=== PATIENT | female | born 1995 | race African-American/Black ===

== ENCOUNTER 2023-10-09 21:58 | Emergency (ER) | payer OTHER, SELFPAY ==
[2023-10-09 22:02] VITALS: BP 138/81; PULSE 107; RESP 18; TEMP 37.1; O2SAT 100; BMI 37.3
--- NOTE | 2023-10-10 02:40 | ED_ITS ---
HPI - Skin/Abscess/Foreign Bdy General Chief complaint: Skin/Abscess/Foreign Body Stated complaint: cyst lower l leg Time Seen by Provider: 10/10/23 02:40 Source: patient Mode of arrival: ambulatory Limitations: no limitations History of Present Illness ED Provider: ori STEPHENS narrative: Patient's history of hydradenitis suppurativa with frequent abscess comes here for swelling of the left dumont for last 1 month with got worse last 4 days taken cephalexin and doxycycline last month but now for last 4 days swelling has more prominent with redness no fever no chills no history of insect bite Related Data Previous Rx's ?Medication ?Instructions ?Recorded amoxicillin 875 mg-potassium 1 tab PO BID #20 tabs 10/10/23 clavulanate 125 mg tablet doxycycline hyclate 100 mg tablet 100 mg PO BID #20 tabs 10/10/23 Allergies Allergy/AdvReac Type Severity Reaction Status Date / Time No Known Allergies Allergy Verified 10/09/23 22:07 Review of Systems 2 Review of Systems: Yes all other systems are reviewed and are negative [facility] Social History Social History Advance Directives: No Advance Directives Information Provided: No Do you have a plan to hurt others: No Plan Physical Exam 2 Vital Signs: Vital Signs: Last Vital Signs Temp 99.0 F 10/10/23 04:22 Pulse 106 H 10/10/23 04:22 Resp 18 10/10/23 04:22 BP 130/89 10/10/23 04:22 Pulse Ox 100 10/10/23 04:22 O2 Del Method Room Air 10/10/23 04:22 BMI result Body Mass Index 37.3 Extrem: Upper/lower leg/hip images: 1. Superficial abscess slight warmth feeling no significant tenderness of Tibia Medications Administered Discontinued Medications Generic Name Dose Route Start Last Admin Trade Name Freq PRN Reason Stop Dose Admin Cefuroxime Axetil 500 mg 10/10/23 04:19 10/10/23 04:29 Cefuroxime Axetil 500 Mg Tablet PO 10/10/23 04:20 500 mg ONCE ONE Administration Doxycycline Monohydrate 100 mg 10/10/23 04:19 10/10/23 04:29 Doxycycline Monohydrate 100 Mg Capsule PO 10/10/23 04:20 100 mg ONCE ONE Administration Lidocaine HCl 5 ml 10/10/23 04:25 10/10/23 04:27 Lidocaine Hcl 1 % Mpf 5 Ml Vial INFILTRATI 10/10/23 04:26 5 ml ONCE ONE Administration Procedures Abscess I/D Site: lower extremity (Leg) Side (if applicable): left Local Anesthetic: lidocaine 1% Amount of anesthesia used (mL): 3 Technique: incised with blade Amount of fluid expressed (mL): 2 Sent for culture/gram staining?: Yes Irrigation: No Packing used?: iodoform Discharge Plan Discharge Clinical Impression: Abscess of leg, left Patient Disposition: Home, Self-Care Instructions: Abscess Incision and Drainage (DC) Additional Instructions: Local care as advised Packing removal in 2 days Take antibiotic as prescribed Report to the ER if worsening of the swelling or pain or red or fever Prescriptions: New doxycycline hyclate 100 mg tablet 100 mg PO BID Qty: 20 0RF amoxicillin-pot clavulanate 875-125 mg tablet 1 tab PO BID Qty: 20 0RF Print Language: Danish
[2023-10-10 04:22] VITALS: BP 130/89; PULSE 106; RESP 18; TEMP 37.2; O2SAT 100
[2023-10-10] MEDS: Lidocaine HCl 1 % MPF 5 ML VIAL INFILTRATI (04:27)
[2023-10-10] MEDS: Doxycycline Monohydrate 100 MG CAPSULE PO (04:29)
[2023-10-10] MEDS: cefuroxime axetiL 500 MG TABLET PO (04:29)
[2023-10-10 04:35] VITALS: BP 130/89; PULSE 106; RESP 18; TEMP 37.2; O2SAT 100
== END 2023-10-10 04:42 | disposition home or self-care (01) ==
PROVIDERS: Emergency Provider Internal Medicine; PCP Internal Medicine
DX: L02.416 Cutaneous abscess of left lower limb (principal)
CPT/HCPCS: 10060; 87070; 87205; 99284

== ENCOUNTER 2024-08-03 10:28 | Outpatient (AMB) | payer OTHER, SELFPAY ==
--- NOTE | 2024-08-03 10:32 | A.OFFVIS_ITS ---
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 Left LE worse than right LE. Started 10 yrs ago and reoccurs every year and forms wound on the Left LE. Pt states seen by derm previously and they did bx. Online Marketer Required: No Accompanied by: Self / Same As Patient Allergies dairy Adverse Reaction (Mild, Uncoded 08/03/24 10:36) Unknown HPI HPI INSTALLATION AND SERVICE TECHNICIAN/PCP ref for LE discoloration/swelling LLE: Details: Shayna, a very pleasant 29yo female patient, is presenting today on a referral from her PCP for left > greater than right lower extremity swelling with discoloration and pain. She states this discoloration with wounds, pain, and swelling has been going on for >10y. She states she is not currently experiencing any wounds but she continues with the swelling and discomfort. Complaints include pain/discomfort, swelling of lower extremities, and wounds of the lower extremities. It has been affecting their daily activities including walking, standing, and physical activity. It is noted more so in the left leg. She has been told she is a prediabetic, but not currently on medications. She is a nonsmoker, never smoked. She has never had a BC and there is no clotting disorders in her family, that she knows. Patient denies any previous venous surgery or injections. Patient denies any history of DVT/ PE. Patient denies any history of phlebitis. Trial of compression includes - elevation with some relief They now present for vascular evaluation regarding their varicose veins. [facility] Medical History (Updated 08/03/24 @ 10:53 by Hetal Valentin PA-C) Hidradenitis suppurativa Social History Alcohol intake: current Alcohol intake frequency: holidays/special occasions only Review of Systems Const Reports as per HPI and Denies weakness ENT Reports Normal hearing present and Denies dizziness Card Reports as per HPI, Denies chest pain, Denies chest pain at rest, Denies chest pain with activity, Denies dyspnea and Denies dyspnea on exertion Resp Reports as per HPI, Denies cough, Denies dyspnea and Denies dyspnea on exertion GI Reports as per HPI, Denies abdominal pain, Denies nausea and Denies vomiting Musc Denies numbness Skin/Breast Reports as per HPI, Denies erythema and Denies wounds Neuro Reports Normal hearing present, Denies dizziness, Denies numbness, Denies Sensory deficit (Neuro) and Denies weakness Psych Reports no additional complaints Endo Reports no additional complaints Physical Exam Vital Signs: BMI result Body Mass Index 37.2 Const General: healthy appearing and no acute distress Orientation/consciousness: patient oriented x3 HEENT Head: Yes normal to inspection Ears: hearing grossly normal bilaterally Mouth: Normal oral and palatal mucosa present Resp Effort & Inspection: normal respiratory effort and able to speak in complete sentences Auscultation: clear to auscultation bilaterally Cardio Jugular venous distension: no JVD Rate: regular rate Rhythm: regular rhythm Heart sounds: S1 normal heart sound present and S2 normal heart sound present Bruits: no abdominal aortic bruits, no carotid bruits, no femoral bruits and no renal bruits Peripheral pulses: Peripheral pulses 2+ throughout GI Inspection: Yes normal to inspection Palpation (GI): No Abdominal aortic bruit present Skin General skin exam: no rashes or lesions noted Wounds: no wounds Hair: normal Neuro General: patient oriented x3 Cranial nerves: Yes Normal hearing present Cognition (Neuro): normal cognition Gait exam (Neuro): Normal gait present Motor exam (neuro): 5/5 motor strength present throughout Sensory Exam: No Sensory deficit (Neuro) Extrem Other: Left lower extremity: +2 pitting edema noted. Discoloration noted from the pretibial area circumferentially to above the ankle. The posterior aspect is [address] and painful to the touch. Not hot to the touch. No wounds noted now. Palpable DP pulse. Right lower extremity: +1 pitting edema noted. Smaller areas of discoloration in the tibial area. No wounds noted. Palpable DP pulse. CEAP: C - 4 E - primary A - superficial P - reflux General: Yes normal to inspection, Yes full ROM, Yes capillary refill normal and Yes normal gait Assessment & Plan Assessment & Plan (1) Varicose veins of both lower extremities with inflammation: Code(s): I83.11 - Varicose veins of right lower extremity with inflammation; I83.12 - Varicose veins of left lower extremity with inflammation Category: Medical Plan: Shayna is presenting today on a referral from her PCP for concerns of ongoing lower extremity swelling with discoloration and hx of wounds. In short, the patient has evidence of venous insufficiency. I have discussed the pathophysiology with the patient. In addition I have provided informational material regarding venous disease to the patient. We have discussed conservative measures including compression, elevation, and exercise. We were able to provide her with compression socks today and discussed the importance of wearing them daily. I have taken the liberty of ordering venous insufficiency testing with the patient. They will follow up with me after testing. The patient had an opportunity to ask questions regarding the treatment plan. All questions were answered. Imaging studies, laboratory studies and physical exam results were discussed and reviewed in detail. No major barriers to und erstanding were identified. The patient expressed understanding and agreement with the above treatment plan. The patient is aware they should contact our office by phone for worsening of the current condition or the appearance of new symptoms. Thank you for allowing me to participate in the vascular care of this patient. If you have any questions or concerns regarding the treatment for the above condition please do not hesitate to contact me. The office telephone contact is [phone]. This note is constructed using voice recognition software. While every effort has been made to ensure accuracy, small arms artillery repairer errors may have been included. Thank you for allowing me to participate in the care of your patient. Yours sincerely, KIERA Castillo Orders: Orders US venous duplex LE BI 1 Week I83.11 - Varicose veins of right lower extremity with inflammation, I83.12 - Varicose veins of left lower extremity with inflammation Coding Level of Care Code New Pt Level 4 (00403) Diagnoses Varicose veins of both lower extremities with inflammation I83.11; I83.12
[2024-08-03 10:33] VITALS: BMI 37.2
--- OUTSIDE RECORDS SUMMARY | 2024-08-03 12:00 | XMS_ITS | Referral Summary ---
Author Organization [facility] Address [address] [place] [address] Care Team Providers Care Glue Mixer Name Role Phone Neel Raza Primary Care Provider [phone] Allergies No known active allergies Medications No known medications Social History Tobacco Use Types Packs/Day Years Used Date Smoking Tobacco: Never Assessed Comments Unknown Sex and Gender Information Value Date Recorded Sex Assigned at Female 10/22/2023 12:08 PM EDT Legal Sex Female 12:03 PM EDT Gender Identity Female 10/22/2023 12:08 PM EDT Sexual Orientation Straight 10/23/2023 10 :16 AM EDT Plan of Treatment Not on file Insurance [employer] Care Teams Glue Mixer Relationship Specialty Start Date End Date Neel Raza [address] [place] [address] [address] [place] [address] PCP - General Internal Medicine 10/22/23
== END 2024-08-03 11:10 | disposition home or self-care (01) ==
LOC: HO.HVS 10:29
PROVIDERS: PCP Internal Medicine; Visit Provider Physician Assistant Surgical
DX: I83.11 Varicose veins of right lower extremity with inflammation (principal); I83.12 Varicose veins of left lower extremity with inflammation
CPT/HCPCS: 99204

== ENCOUNTER 2024-08-25 13:40 | Outpatient (REF) | payer OTHER, SELFPAY ==
--- NOTE | ~2024-08-25 | US_ITS ---
EXAMINATION: US LOWER EXTREMITY VENOUS (REFLUX EXAM), BILATERAL CLINICAL INFORMATION: Varices. COMPARISON: None. TECHNIQUE: Color flow triplex imaging and compression Doppler was performed to evaluate both the deep and the superficial systems bilaterally. To evaluate the superficial system, the examination was performed in the upright position. Color-flow Doppler ultrasound and compression ultrasound were utilized. In addition, maneuvers were utilized to demonstrate reflux. FINDINGS: 1. DEEP VENOUS ULTRASOUND OF THE RIGHT LOWER EXTREMITY: Common Femoral Vein: Compressible, normal respiratory variation and augmented flow. Femoral Vein: Compressible, normal color flow and augmentation. Popliteal Vein: Compressible, normal augmentation. Deep Reflux: There is no evidence of reflux in the deep system in either the common femoral vein, superficial femoral or the popliteal vein. There is no evidence of a Garza's cyst. 2. SUPERFICIAL ULTRASOUND WITH DOPPLER OF RIGHT LOWER EXTREMITY: GREAT SAPHENOUS VEIN: Saphenofemoral Junction: 0.6 cm; Reflux: 0 ms Proximal Thigh: 0.4 cm; Reflux: 0 ms Mid Thigh: 0.3 cm; Reflux: 0 ms Distal Thigh: 0.3 cm; Reflux: 0 ms At Knee: 0.4 cm; Reflux: 0 ms Proximal Calf: 0.2 cm; Reflux: 0 ms Mid Calf: 0.3 cm; Reflux: 0 ms Distal Calf: 0.2 cm; Reflux: 0 ms DUPLICATED MEDIAL GREAT SAPHENOUS VEIN: Diameter: None imaged Reflux: NA DUPLICATED LATERAL GREAT SAPHENOUS VEIN: Diameter: 0.4-0.5 cm. Reflux: NA SMALL SAPHENOUS VEIN: Saphenopopliteal Junction: 0.4 cm; Reflux: 0 ms Proximal: 0.3 cm; Reflux: 0 ms Distal: 0.2 cm; Reflux: 0 ms VEIN OF GIACOMINI: Size: NA Reflux: NA PERFORATORS: Location: None imaged Size: NA Reflux: NA VARICOSITIES: Location: None imaged. Size: NA Reflux: NA 3. DEEP VENOUS ULTRASOUND OF THE LEFT LOWER EXTREMITY: Common Femoral Vein: Compressible, normal respiratory variation and augmented flow. Femoral Vein: Compressible, normal color flow and augmentation. Popliteal Vein: Compressible, normal augmentation. Deep Reflux: There is no evidence of reflux in the deep system in either the common femoral vein, superficial femoral or the popliteal vein. There is no evidence of a Garza's cyst. There is a 2.1 x 1.5 cm lobulated anechoic abnormality without flow on color Doppler interrogation just beneath the skin in the left inguinal region. 4. SUPERFICIAL ULTRASOUND WITH DOPPLER OF LEFT LOWER EXTREMITY: GREAT SAPHENOUS VEIN: Saphenofemoral Junction: 1.1 cm; Reflux: 0 ms Proximal Thigh: 0.4 cm; Reflux: 0 ms Mid Thigh: 0.3 cm; Reflux: 0 ms Distal Thigh: 0.3 cm; Reflux: 0 ms At Knee: 0.4 cm; Reflux: 0 ms Proximal Calf: 0.2 cm; Reflux: 0 ms Mid Calf: 0.1 cm; Reflux: 0 ms Distal Calf: 0.2 cm; Reflux: 0 ms DUPLICATED MEDIAL GREAT SAPHENOUS VEIN: Diameter: None imaged Reflux: NA DUPLICATED LATERAL GREAT SAPHENOUS VEIN: Diameter: 0.4-0.5 cm. Reflux: NA SMALL SAPHENOUS VEIN: Saphenopopliteal Junction: 0.5 cm; Reflux: 0 ms Proximal: 0.3 cm; Reflux: 0 ms Distal: 0.3 cm; Reflux: 0 ms VEIN OF GIACOMINI: Size: NA Reflux: NA PERFORATORS: Location: Mid calf. Size: 0.1 cm. Reflux: NA VARICOSITIES: Location: None Imaged Size: NA Reflux: NA US/US venous duplex LE BI IMPRESSION: Right: No venous insufficiency. No gross varices. Left: No venous insufficiency. No gross varices. Perforators without reflux in the mid calf. 2.1 cm lobulated fluid collection beneath the skin left inguinal region. Electronically signed by: Jairon Hurst MD 08/25/2024 03:35 PM EDT
--- OUTSIDE RECORDS SUMMARY | 2024-08-25 14:30 | XMS_ITS | Referral Summary ---
Author Organization [facility] Address [address] [place] [address] Care Team Providers Care Acid Polymerization Operator Name Role Phone Neel Raza Primary Care Provider [phone] Allergies No known active allergies Medications No [...] Not on file Insurance [employer] Care Teams Acid Polymerization Operator Relationship Specialty Start Date End Date Neel Raza [address] [place] [address] [address] [place] [address] PCP - General Internal Medicine 10/22/23
== END 2024-08-25 13:41 | disposition home or self-care (01) ==
LOC: HO.US 13:40
PROVIDERS: PCP Nurse Practitioner Family; Visit Provider Physician Assistant Surgical
DX: I83.11 Varicose veins of right lower extremity with inflammation (principal); I83.12 Varicose veins of left lower extremity with inflammation
CPT/HCPCS: 93970

== ENCOUNTER → 2024-08-25 13:44 | Outpatient (BNV) | payer OTHER, SELFPAY | PROVIDERS: PCP Nurse Practitioner Family; Visit Provider Radiology Diagnostic Radiology | DX: R22.2 Localized swelling, mass and lump, trunk (principal) | CPT/HCPCS: 93970 ==

== ENCOUNTER 2024-09-16 14:56 | Outpatient (AMB) | payer OTHER, SELFPAY ==
--- OUTSIDE RECORDS SUMMARY | 2024-09-16 15:00 | XMS_ITS | Referral Summary ---
Author Organization [facility] Address [address] [place] [address] Care Team Providers Care Gymnastics Instructor Name Role Phone Neel Raza Primary Care Provider [phone] Allergies No known active allergies Medications No [...] Not on file Insurance [employer] Care Teams Gymnastics Instructor Relationship Specialty Start Date End Date Neel Raza [address] [place] [address] [address] [place] [address] PCP - General Internal Medicine 10/22/23
--- NOTE | 2024-09-16 15:07 | A.OFFVIS_ITS ---
Intake Visit Reasons: follow up s/p US 08/25/24 Intake Note: Patient presents for follow up US performed on August 25. No complaints. Accompanied by: Self / Same As Patient Allergies dairy Adverse Reaction (Mild, Uncoded 08/03/24 10:36) Unknown HPI HPI follow up s/p 08/25/24: Details: Very pleasant 29-year-old female presents for follow-up regarding venous insufficiency. She had discoloration in ulcers that began on her left lower extremity. This was been going on for over 10 years. Primary care team was concerned about venous insufficiency as a possible cause and she subsequently underwent venous insufficiency testing. In the interim she has been followed by Rheumatology and Dermatology. There is consideration of a biopsy in the future and also she is being worked up for scleroderma as well. She now presents for follow-up with venous insufficiency testing. [facility] Medical History Hidradenitis suppurativa Social History Alcohol intake: current Alcohol intake frequency: holidays/special occasions only Review of Systems Const All systems reviewed & are unremarkable except as noted in HPI and below Reports no additional complaints ENT Reports Normal hearing present Card Denies chest pain, Denies chest pain at rest, Denies chest pain with activity and Denies pedal edema Resp Denies cough GI Denies abdominal pain Musc Denies abnormal gait, Denies muscle cramps and Denies radiating pain into limb Skin/Breast Denies skin ulcer and Denies wounds Neuro Reports Normal hearing present and Denies abnormal gait Psych Reports no additional complaints Physical Exam Const General: cooperative, healthy appearing and comfortable Orientation/consciousness: oriented to person, oriented to place and oriented to time HEENT Head: Yes normal to inspection Neck Neck: Yes normal visual inspection Carotids: no bruits Chest Chest palpation & inspection: normal inspection of the chest Resp Effort & Inspection: normal respiratory effort and able to speak in complete sentences Auscultation: clear to auscultation bilaterally, no crackles, no rales, no rhonchi and no wheezes Cardio Rate: regular rate Rhythm: regular rhythm Heart sounds: S1 normal heart sound present and S2 normal heart sound present Bruits: no carotid bruits Peripheral pulses: Peripheral pulses 2+ throughout GI Inspection: Yes normal to inspection Skin Other: Plus one edema evidence of healed ulceration of left lower extremity. Wounds: no wounds Hair: normal Neuro General: oriented to person, oriented to place and oriented to time Cranial nerves: Yes CN's II-XII intact bilaterally and Yes Normal hearing present Cognition (Neuro): normal cognition Motor exam (neuro): 5/5 motor strength present throughout Extrem Other: venous exam: +1 edema General: No clubbing, No cyanosis and Yes edema Psych Appearance: grossly normal Mental Status: mental status grossly normal Speech and movement: Normal speech and movement present Results Reviewed Results Reviewed: Brief summary of venous insufficiency testing is as follows: right great saphenous vein: negative right small saphenous vein: negative right accessory vein: none present left great saphenous vein: negative left small saphenous vein: negative left accessory vein: none present Please note there is no evidence of any venous aneurysms or significant tortuosity Assessment & Plan Assessment & Plan (1) Varicose veins of both lower extremities with inflammation: Code(s): I83.11 - Varicose veins of right lower extremity with inflammation; I83.12 - Varicose veins of left lower extremity with inflammation Category: Medical Plan: In short patient is negative for any significant venous insufficiency. At the current time would recommend continued conservative measures including compression elevation and exercise. I do suspect there may be an underlying cause and would continue with rheumatologic workup. I did discuss these findings with her and she was in agreement. She will follow up with us on an as-needed basis. Thank you for allowing us to assist in her care. If there are any questions or concerns please do not hesitate to contact us. Coding Level of Care Code Est Pt Level 4 (27096) Diagnoses Varicose veins of both lower extremities with inflammation I83.11; I83.12
== END 2024-09-16 15:36 | disposition home or self-care (01) ==
LOC: HO.HVS 14:57
PROVIDERS: PCP Nurse Practitioner Family; Visit Provider Surgery Vascular Surgery
DX: I83.11 Varicose veins of right lower extremity with inflammation (principal); I83.12 Varicose veins of left lower extremity with inflammation
CPT/HCPCS: 99214